=== PATIENT | female | born 1970 | race Hispanic/Latino ===

== ENCOUNTER 2016-05-29 13:52 | Emergency (ER) | payer OTHER ==
[~2016-05-29] VITALS: Ht 162.6 cm; Wt 68.0 kg
[~2016-05-29 13:52] MED LIST: KEFLEX500 MG PO; MEDROL DOSEPAK1 PAC PO; TRIAMCINOL0.1 %/453 TOP
[2016-05-29 13:58] VITALS: BP 136/90
[2016-05-29] MEDS ORDERED: TRAMADOL HCL50 M1 PO (14:05)
[2016-05-29] MEDS ORDERED: LIDOCAINE HCL V15 ML PO (14:05)
--- NOTE | 2016-05-29 14:06 | ED THROAT/DENTAL COMPLAINT ---
History of Present Illness General Chief Complaint: Sore Throat, Dental Pain Stated Complaint: TOOTH PAIN Source: patient Exam Limitations: no limitations Vital Signs & Intake/Output Vital Signs & Intake/Output Vital Signs Date Time Temp Pulse Resp B/P Pulse O2 O2 Flow FiO2 Ox Delivery Rate 05/29 1358 98.5 78 16 136/90 98 Room Air Room Air Allergies Coded Allergies: peanut (Intermediate, HIVES, HEADACHE 05/29/16) Reconcile Medications Lidocaine HCl (Lidocaine HCl Viscous) 2 % SOLUTION 15 ML PO 4 TIMES/DAY PRN dental pain swish and spit Tramadol HCl 50 MG TABLET 1 TAB PO BIDP PRN pain Triamcinolone Acetonide (Triamcinolone 0.1% Cream 453 Gm) 0.1 %/453 GM CRM 1 SARAH TOP BID SKIN RASH apply to affected area(s) Triage Note: pt to triage for right tooth pain for 1 week Triage Nurses Notes Reviewed? yes Onset: Gradual Duration: week(s): (1) Timing: no prior history Injury Environment: home Severity: moderate Severity Numbers: 8 Modifying Factors: Worsens With: other (palpation). : No Patient currently breastfeeds: No HPI: Patient is a 45-year-old female presenting to the emergency department with chief complaint of right lower dental pain has been going on for the past week. Denies any fevers chills nausea vomiting. Denies any edema to the area. She reports it's been cracked for "a while" but just got worse over the past week. Has been taking [id number] Tylenol without relief. Denies any recent trauma. She is scheduled to have the tooth removed but they won't do it until after her colostomy surgery in 2 weeks. (AMRITA DOLAN) Past History Travel History Traveled to [place] past 21 day No Medical History Any Pertinent Medical History? see below for history Neurological: NONE EENT: NONE Cardiovascular: NONE Respiratory: NONE Gastrointestinal: ulcerative colitis Musculoskeletal: PINCHED NERVE IN NECK Surgical History Surgical History: non-contributory Psychosocial History What is your primary language [place] Tobacco Use: Never used ETOH Use: denies use Illicit Drug Use: denies illicit drug use Family History Hx Contributory? No (AMRITA DOLAN) Review of Systems Review of Systems Constitutional: Reports: no symptoms. Comments Review of systems: See HPI, All other systems negative. Constitutional, no chills fever or weight loss HEENT: No visual changes no sore throat no congestion Cardiovascular: No chest pain ,palpitation , orthopnea or ankle swelling Skin, no jaundice no rashes Respiratory: No dyspnea cough sputum or hemoptysis GI: No nausea no vomiting Muscle skeletal: no back pain, no neck pain, Neurologic: No numbness Immunology: No splenectomy or history of AIDS (AMRITA DOLAN) Physical Exam Physical Exam General Appearance: well developed/nourished, no apparent distress, alert, awake , comfortable Mouth/Throat: poor dentition Comments: Well-developed well-nourished person in no acute distress HEENT: Pupils equally round and reactive to light and accommodation. Nose is atraumatic. External auditory canal and Tympanic membranes clear. Pharynx normal. No swelling or edema. Poor dentition. Cracked posterior molar on the right lower jawline. No surrounding erythema or edema. No abscess. Neck: Normal inspection Back: Nontender Cardiovascular: Regular rate and rhythms no murmurs rubs or gallops, normal JVP Respiratory: No respiratory distress. Extremity: No edema Neuro: Alert oriented x3 Skin: No appreciable rash on exposed skin, skin is warm and dry. Psych: Mood and affect is normal, memory and judgment is normal. Core Measures ACS in differential dx? No Severe Sepsis Present: No Septic Shock Present: No (AMRITA DOLAN) Progress Differential Diagnosis: tooth fracture, dental Gina, dental abscess, gingivitis Plan of Care: Patient will be treated symptomatically for pain. No signs of dental infection. She'll follow up with her dentist. Patient nontoxic. (AMRITA DOLAN) Departure Departure Time of Disposition: 1403 Disposition: HOME OR SELF CARE Condition: Stable Clinical Impression Primary Impression: Pain, dental Referrals: UNKNOWN (PCP/Family) Additional Instructions: Follow-up with your primary care physician and your dentist call to make an appointment. Take tramadol as prescribed for pain. Use lidocaine mouthwash as directed to help with pain. Return for worsening symptoms or concerns. Departure Forms: Customer Survey General Discharge Information Prescriptions: Current Visit Scripts Lidocaine HCl (Lidocaine HCl Viscous) 15 ML PO 4 TIMES/DAY PRN dental pain #100 ML swish and spit Tramadol HCl 1 TAB PO BIDP PRN pain #10 TAB (AMRITA DOLAN) PA/INVENTORY AUDITOR Co-Sign Statement Statement: ED Attending supervision documentation- x I saw and evaluated the patient. I have also reviewed all the pertinent lab results and diagnostic results. I agree with the findings and the plan of care as documented in the PA's/INVENTORY AUDITOR's documentation. [] I have reviewed the ED Record and agree with the PA's/INVENTORY AUDITOR's documentation. [] Additions or exceptions (if any) to the PAs/INVENTORY AUDITOR's note and plan are summarized below: [] (VERONICA JEAN,EVIN)
== END 2016-05-29 14:15 ==
LOC: ERH 13:52
DX: K08.89 Other specified disorders of teeth and supporting structures (principal)

== ENCOUNTER 2016-06-05 13:17 | Emergency (ER) | payer OTHER ==
[~2016-06-05] VITALS: Ht 162.6 cm; Wt 68.0 kg
[~2016-06-05 13:17] MED LIST changes: +LIDOCAINE HCL V15 ML PO; +TRAMADOL HCL50 M1 PO
--- NOTE | 2016-06-05 13:27 | ED HEADACHE COMPLAINT ---
History of Present Illness General Chief Complaint: Headache Stated Complaint: MIGRANE Source: patient Exam Limitations: no limitations Vital Signs & Intake/Output Vital Signs & Intake/Output Vital Signs Date Time Temp Pulse Resp B/P Pulse O2 O2 Flow FiO2 Ox Delivery Rate 06/05 1455 98.3 60 18 120/69 100 Room Air 06/05 1320 96.6 109 20 131/90 95 Room Air Allergies Coded Allergies: peanut (Intermediate, HIVES, HEADACHE 06/05/16) Reconcile Medications Butalb/Acetaminophen/Caffeine (Fioricet 50-300-40 MG Capsule) 50 MG-300 MG-40 MG CAPSULE 1-2 TAB PO Q6H PRN HEADACHE Lidocaine HCl (Lidocaine HCl Viscous) 2 % SOLUTION 15 ML PO 4 TIMES/DAY PRN dental pain swish and spit Promethazine HCl 25 MG TABLET 1 TAB PO Q6P PRN nausea/headache Tramadol HCl 50 MG TABLET 1 TAB PO BIDP PRN pain Triamcinolone Acetonide (Triamcinolone 0.1% Cream 453 Gm) 0.1 %/453 GM CRM 1 SARAH TOP BID SKIN RASH apply to affected area(s) Triage Note: TRIAGE: PT TO ER C/C MIGRAINE HEADACHE, HX OF SAME. ONSET YESTERDAY. TAKING EXCEDRIN WITH NO RELIEF. HAS HAD CORTIZONE SHOTS IN THE PAST WITH GOOD RELIEF. HAS ASSOCIATED S/S OF N/V AND DIZZINESS WHEN GETTING UP. -VISION CHANGES, -BLURRY VISION. +LIGHT/SOUND SENSITIVITY. Triage Nurses Notes Reviewed? yes : No Patient currently breastfeeds: No HPI: Patient is a 45-year-old female presents complaining of migraine headache. Left -sided frontal, temporal, parietal headache consistent with previous migraines 2 days. Associated nausea and vomiting, patient reports numerous episodes of vomiting. Patient tried taking Excedrin yesterday with no improvement. Pain is sharp, severe, worse with light. Patient denies fevers, chills, neck pain, rash , sick contacts (WINIFRED ROLLINS,MITCHEL) Past History Travel History Traveled to [place] past 21 day No Medical History Any Pertinent Medical History? 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 No (MITCHEL ARORA) Review of Systems Review of Systems Constitutional: Denies: chills, fever. Eyes: Reports: photophobia. Denies: blurred vision. Ears, Nose, Throat, Mouth: Reports: no symptoms. Respiratory: Denies: cough, short of breath. Cardiovascular: Denies: chest pain. Gastrointestinal/Abdominal: Reports: nausea, vomiting. Denies: abdominal pain. Genitourinary: Reports: no symptoms. Musculoskeletal: Reports: no symptoms. Skin: Reports: no symptoms. Neurological/Psychological: Reports: see HPI. Hematologic/Endocrine: Reports: no symptoms. Endocrine: Reports: no symptoms. Immunologic/Allergic: Reports: no symptoms. (MITCHEL ARORA) Physical Exam Physical Exam General Appearance: well developed/nourished, alert, awake Head: atraumatic, normal appearance, mild left-sided scalp tenderness, no palpable step-offs or deformities, no rash or lesions Eyes: Bilateral: normal appearance, PERRL, EOMI. Ears, Nose, Throat: normal pharynx, normal ENT inspection, hearing grossly normal Neck: normal inspection, supple, full range of motion, no midline tenderness Respiratory: normal breath sounds, chest non-tender, no respiratory distress, lungs clear Cardiovascular: regular rate/rhythm Gastrointestinal: soft, non-tender Back: normal inspection, normal range of motion Extremities: normal inspection, normal capillary refill, normal range of motion, no edema Psychiatric: awake, alert, oriented x 3 Cranial Nerves: normal hearing, normal speech, PERRL Coordination/Gait: normal gait Motor/Sensory: no motor/sensory deficits Skin: intact, normal color, warm/dry Core Measures Severe Sepsis Present: No Septic Shock Present: No (MITCHEL ARORA) Progress Differential Diagnosis: carotid dissection, cluster KOENIG, IC mass/tumor, intracranial Hem., meningitis, migraine KOENIG, musculoskeletal pain, subarach. Hem. , tension KOENIG, temporal arteritis, viral cephalgia Plan of Care: Current Medications Sig/Tabby Start time Last Medication Dose Stop Time Status Admin Dexamethasone 8 MG ONCE ONE 06/05 1345 UNVr (Decadron) 06/05 1346 Ketorolac 30 MG ONCE ONE 06/05 134 UNVr Tromethamine 06/05 134 (Toradol) Metoclopramide HCl 10 MG ONCE ONE 06/05 1344 UNVr (Reglan) 06/05 134 Sodium Chloride 1,000 ML BOLUS ONE 06/05 1344 UNVr (Normal Saline 0.9%) 06/05 1444 1420: Patient reports improvement of nausea and headache. Currently having left nasal congestion. No acute neurologic abnormalities. 1455: Symptoms resolve, patient nontoxic appearing, no meningeal signs, pain consistent with previous migraines. Appears stable for discharge. (MITCHEL ARORA) Departure Departure Time of Disposition: 1454 Disposition: HOME OR SELF CARE Condition: Stable Clinical Impression Primary Impression: Migraine headache Qualifiers: Migraine type: unspecified Status migrainosus presence: with status migrainosus Intractability: not intractable Qualified Code: G43.901 - Migraine, unspecified, not intractable, with status migrainosus Referrals: JAUN JEAN,MOMO WOODWARD (PCP/Family) Additional Instructions: Follow up with your primary doctor or with Dr. Pierce(primary doctor) for further evaluation. You should discuss possible prophylactic medications to help prevent migraines. Return to the ER if worsening of symptoms. Departure Forms: Customer Survey General Discharge Information Prescriptions: Current Visit Scripts Promethazine HCl 1 TAB PO Q6P PRN nausea/headache #15 TAB Butalb/Acetaminophen/Caffeine (Fioricet 50-300-40 MG Capsule) 1-2 TAB PO Q6H PRN HEADACHE #15 TAB (MITCHEL ARORA) PA/EXPLOSIVE TECHNICIAN Co-Sign Statement Statement: ED Attending supervision documentation- [] I saw and evaluated the patient. I have also reviewed all the pertinent lab results and diagnostic results. I agree with the findings and the plan of care as documented in the PA's/EXPLOSIVE TECHNICIAN's documentation. [X] I have reviewed the ED Record and agree with the PA's/EXPLOSIVE TECHNICIAN's documentation. [] Additions or exceptions (if any) to the PAs/EXPLOSIVE TECHNICIAN's note and plan are summarized below: [] (ROSA JEAN,JASPER)
[2016-06-05] MEDS ORDERED: PROMETHAZINE HC25 M3 PO (14:50)
[2016-06-05] MEDS ORDERED: FIORICET 50-301 EACH PO (14:50)
[2016-06-05 14:55] VITALS: BP 120/69
== END 2016-06-05 15:03 ==
LOC: ERH 13:17
DX: G43.909 Migraine, unspecified, not intractable, without status migrainosus (principal); R11.2 Nausea with vomiting, unspecified
CPT/HCPCS: 96374; 96375; J1100; J1885; J2765

== ENCOUNTER 2016-11-06 20:17 | Emergency (ER) | payer OTHER ==
[~2016-11-06] VITALS: Ht 162.6 cm; Wt 72.6 kg
[~2016-11-06 20:17] MED LIST changes: +FIORICET 50-301 EACH PO; +PROMETHAZINE HC25 M3 PO
[2016-11-06 20:46] VITALS: BP 111/76
[2016-11-06] MEDS ORDERED: PERCOCET 5-3251 EACH PO (21:57)
--- NOTE | 2016-11-06 21:58 | ED THROAT/DENTAL COMPLAINT ---
History of Present Illness General Chief Complaint: Sore Throat, Dental Pain Stated Complaint: TOOTH ACHE Source: patient Exam Limitations: no limitations Vital Signs & Intake/Output Vital Signs & Intake/Output Vital Signs Date Time Temp Pulse Resp B/P B/P Pulse O2 O2 Flow FiO2 Mean Ox Delivery Rate 11/066 98.8 76 16 111/76 99 Room Air ED Intake and Output 11/07 0000 11/06 1200 Intake Total Output Total Balance Patient 160 lb Weight Weight Reported by Patient Measurement Method Allergies Coded Allergies: peanut (Intermediate, HIVES, HEADACHE 06/05/16) Reconcile Medications Butalb/Acetaminophen/Caffeine (Fioricet 50-300-40 MG Capsule) 50 MG-300 MG-40 MG CAPSULE 1-2 TAB PO Q6H PRN HEADACHE Lidocaine HCl (Lidocaine HCl Viscous) 2 % SOLUTION 15 ML PO 4 TIMES/DAY PRN dental pain swish and spit Oxycodone HCl/Acetaminophen (Percocet 5-325 MG Tablet) 5 MG-325 MG TABLET 1-2 TAB PO Q6P PRN PAIN Promethazine HCl 25 MG TABLET 1 TAB PO Q6P PRN nausea/headache Tramadol HCl 50 MG TABLET 1 TAB PO BIDP PRN pain Triamcinolone Acetonide (Triamcinolone 0.1% Cream 453 Gm) 0.1 %/453 GM CRM 1 SARAH TOP BID SKIN RASH apply to affected area(s) Triage Note: TRIAGE: LEFT UPPER MAXILLA AREA PAIN/TOOTH ACHE, STATES SHE TOOK 600MG ADVIL AT 5PM WITHOUT IMPROVEMENT. STATES SHE HASN'T BEEN TO DENTIST YET DUE TO CONCERNS FOR NEED FOR GI SURGERY. AFEBRILE IN TRIAGE. DECLINES TYLENOL OFFERED BECAUSE "IT DOESN'T WORK". Triage Nurses Notes Reviewed? yes HPI: Patient presents with a severe 10 out of 10 aching throbbing pain to her left upper molar area. The pain radiates into her cheek. The pain increases when she touches the tooth with anything including her tongue. There are no fevers or chills. Patient has not seen her dentist yet for it. Patient has tried to take Tylenol and Motrin for the pain without any relief. The pain is 10 OUT OF 10. Past History Travel History Traveled to [place] past 21 day No Medical History Any Pertinent Medical History? 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 No Review of Systems Review of Systems Constitutional: Reports: no symptoms. EENTM: Reports: see HPI, tooth pain. Respiratory: Reports: no symptoms. Cardiovascular: Reports: no symptoms. Musculoskeletal: Reports: no symptoms. Neurological/Psychological: Reports: no symptoms. Physical Exam Physical Exam General Appearance: well developed/nourished, alert, awake, mild distress Head: atraumatic Eyes: Bilateral: PERRL, EOMI. Mouth/Throat: dental tenderness, NO ABSCESS, NO EDEMA Neck: normal inspection, supple Cardiovascular/Respiratory: normal breath sounds, normal peripheral pulses, regular rate/rhythm, no respiratory distress Neurologic/Psych: no motor/sensory deficits, awake, alert, oriented x 3, normal gait, normal mood/affect Core Measures ACS in differential dx? No Severe Sepsis Present: No Septic Shock Present: No Progress Differential Diagnosis: carious tooth Plan of Care: PAIN CONTROL AND FOLLOW UP Departure Departure Disposition: HOME OR SELF CARE Condition: Stable Clinical Impression Primary Impression: Toothache Referrals: UNKNOWN (PCP/Family) Additional Instructions: FOLLOW UP WITH YOUR DENTIST RETURN FOR ANY CONCERNS Departure Forms: Customer Survey General Discharge Information Prescriptions: Current Visit Scripts Oxycodone HCl/Acetaminophen (Percocet 5-325 MG Tablet) 1-2 TAB PO Q6P PRN PAIN #20 TAB
== END 2016-11-06 22:08 ==
LOC: ERH 20:17
DX: K08.89 Other specified disorders of teeth and supporting structures (principal)

== ENCOUNTER 2017-09-30 18:00 | Emergency (ER) | payer OTHER ==
[~2017-09-30] VITALS: Ht 162.6 cm; Wt 68.0 kg
[~2017-09-30 18:00] MED LIST changes: +ESGIC 50-325-41 EACH PO; +EXCEDRIN EXTRA1 EACH PO; +PERCOCET 5-3251 EACH PO
--- NOTE | 2017-09-30 20:04 | ED HEADACHE COMPLAINT ---
History of Present Illness General Chief Complaint: Headache Stated Complaint: HEADACHE Source: patient, old records Exam Limitations: no limitations Vital Signs & Intake/Output Vital Signs & Intake/Output Vital Signs Date Time Temp Pulse Resp B/P B/P Pulse O2 O2 Flow FiO2 Mean Ox Delivery Rate 09/30 2040 97.5 85 18 115/72 97 Room Air Room Air 09/30 1803 97.3 83 16 112/78 98 Room Air Allergies Coded Allergies: peanut (Intermediate, HIVES, HEADACHE 06/05/16) Reconcile Medications Aspirin/Acetaminophen/Caffeine (Excedrin Extra Strength Caplet) 250 MG-250 MG-65 MG TABLET 2 TAB PO PRN HEADACHES (Reported) Butalb/Acetaminophen/Caffeine (Esgic 50-325-40 MG Tablet) 50 MG-325 MG-40 MG TABLET 1 TAB PO Q6P PRN MIGRAINE Butalb/Acetaminophen/Caffeine (Esgic 50-325-40 MG Tablet) 50 MG-325 MG-40 MG TABLET 1 TAB PO Q6P PRN MIGRAINE Triage Note: PT STATES "I HAVE A CLUSTER MIGRAINE AGAIN". +NAUSEA, +PHOTOSENSTIVITY. PT TOOK EXCEDRIN W/O RELIEF. PAIN STARTED TODAY. Triage Nurses Notes Reviewed? yes HPI: Patient presents with a throbbing sensation above her left eye. Positive photophobia. The pain is 8 out of 10. There is no radiation. There is no nausea or vomiting. There are no fevers or chills. Similar symptoms in the past when she's had migraines. Patient has been seen in the emergency department prior for migraines and she states that the Toradol that she gets helps her headache. Patient states that she ran out of her FIRWediviteET. Past History Travel History Traveled to [place] past 21 day No Medical History Any Pertinent Medical History? 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 No Review of Systems Review of Systems Constitutional: Reports: no symptoms. Eyes: Reports: see HPI, photophobia. Respiratory: Reports: no symptoms. Cardiovascular: Reports: no symptoms. Gastrointestinal/Abdominal: Reports: no symptoms. Neurological/Psychological: Reports: see HPI, headache. Immunologic/Allergic: Reports: no symptoms. Physical Exam Physical Exam General Appearance: well developed/nourished, alert, awake, anxious, mild distress Head: atraumatic, normal appearance Eyes: Bilateral: PERRL, EOMI. Neck: normal inspection, supple, full range of motion Respiratory: normal breath sounds, chest non-tender, no respiratory distress, lungs clear Cardiovascular: regular rate/rhythm, normal peripheral pulses Psychiatric: awake, alert, oriented x 3 Cranial Nerves: normal hearing, normal speech, PERRL Coordination/Gait: normal gait Core Measures Sepsis Present: No Sepsis Focused Exam Completed? No Progress Differential Diagnosis: migraine KOENIG Plan of Care: Current Medications Sig/Tabby Start time Last Medication Dose Stop Time Status Admin Ketorolac 60 MG ONCE ONE 09/30 2014 AC Tromethamine 10/01 2015 (Toradol) Departure Departure Disposition: HOME OR SELF CARE Condition: Stable Clinical Impression Primary Impression: Migraine Referrals: Unknown (PCP/Family) Additional Instructions: RETURN IF SYMPTOMS WORSEN OR FOR ANY CONCERNS Departure Forms: Customer Survey General Discharge Information Prescriptions: Current Visit Scripts Butalb/Acetaminophen/Caffeine (Esgic 50-325-40 MG Tablet) 1 TAB PO Q6P PRN MIGRAINE #20 TAB
[2017-09-30] MEDS ORDERED: ESGIC 50-325-41 EACH PO (20:06)
[2017-09-30 20:41] VITALS: BP 115/72
== END 2017-09-30 20:42 ==
LOC: ERH 18:00
DX: G43.909 Migraine, unspecified, not intractable, without status migrainosus (principal)
CPT/HCPCS: 96372; J1885

== ENCOUNTER 2017-12-11 10:52 | Emergency (ER) | payer OTHER ==
[~2017-12-11] VITALS: Ht 162.6 cm; Wt 68.0 kg
[2017-12-11 10:54] VITALS: BP 111/71
--- NOTE | 2017-12-11 11:07 | ED HEADACHE COMPLAINT ---
History of Present Illness General Chief Complaint: Headache Stated Complaint: MIGRANE Source: patient Exam Limitations: no limitations Vital Signs & Intake/Output Vital Signs & Intake/Output Vital Signs Date Time Temp Pulse Resp B/P B/P Pulse O2 O2 Flow FiO2 Mean Ox Delivery Rate 12/11 1054 97.5 75 20 111/71 98 Room Air Allergies Coded Allergies: peanut (Intermediate, HIVES, HEADACHE 06/05/16) Reconcile Medications Aspirin/Acetaminophen/Caffeine (Excedrin Extra Strength Caplet) 250 MG-250 MG-65 MG TABLET 2 TAB PO PRN HEADACHES (Reported) Butalb/Acetaminophen/Caffeine (Esgic 50-325-40 MG Tablet) 50 MG-325 MG-40 MG TABLET 1 TAB PO Q6P PRN MIGRAINE Butalb/Acetaminophen/Caffeine (Esgic 50-325-40 MG Tablet) 50 MG-325 MG-40 MG TABLET 1 TAB PO Q6P PRN MIGRAINE Butalb/Acetaminophen/Caffeine (Zebutal 50-325-40 MG Capsule) 50 MG-325 MG-40 MG CAPSULE 1 TAB PO TID PRN MIGRAINE Methylprednisolone. (Medrol) 4 MG TAB.DS.PK 1 DP PO AD MIGRAINE 6 on day 1 then reduce by one tablet daily until gone Ondansetron HCl (Zofran) 4 MG TABLET 1 TAB PO Q6-8P PRN NAUSEA Triage Note: PT TO ED C/O MIGRAINE SINCE YESTERDAY. H/O SAME. TRIED EXCEDRIN WITH NO RELIEF. C/O N/V AND LIGHT SENSITVITY. Triage Nurses Notes Reviewed? yes Onset: Gradual Duration: constant Timing: recent history Quality/Severity: moderate, pressure Severity Numbers: 6 HPI: Patient is a 47-year-old with a past medical history migraines and ulcerative colitis who presented emergently with a 2 day history of generalized global migraine head pressure, patient states that gradually onset denies any acute onset or thunderclap headache denies any worst headache of life patient has associated symptoms of blurred vision photophobia and nausea without emesis. Patient ran out of her Fioricet which always improve her symptoms. Denies any fever chills neck pain facial droop and is otherwise without complaints. (Regis ROLLINS,Channing) Past History Travel History Traveled to [place] past 21 day No Medical History Any Pertinent Medical History? 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 No (Channing Corral) Review of Systems Review of Systems Constitutional: Reports: no symptoms. Eyes: Reports: see HPI, blurred vision. Ears, Nose, Throat, Mouth: Reports: no symptoms. Respiratory: Reports: no symptoms. Cardiovascular: Reports: no symptoms. Gastrointestinal/Abdominal: Reports: see HPI. Genitourinary: Reports: no symptoms. Musculoskeletal: Reports: no symptoms. Skin: Reports: no symptoms. Neurological/Psychological: Reports: see HPI, headache. Hematologic/Endocrine: Reports: no symptoms. Endocrine: Reports: no symptoms. Immunologic/Allergic: Reports: no symptoms. All Other Systems: Reviewed and Negative (Channing Corral) Physical Exam Physical Exam General Appearance: no apparent distress, alert, comfortable Head: atraumatic Eyes: Bilateral: normal appearance, PERRL, EOMI. Ears, Nose, Throat: normal pharynx, normal ENT inspection, hearing grossly normal Neck: normal inspection, supple Respiratory: normal breath sounds, chest non-tender, no respiratory distress Cardiovascular: regular rate/rhythm Psychiatric: awake, alert Cranial Nerves: normal hearing, normal speech, PERRL Coordination/Gait: normal finger to nose Skin: intact, normal color, warm/dry Comments: CN II-XII INTACT Core Measures Sepsis Present: No Sepsis Focused Exam Completed? No (Channing Corral) Progress Differential Diagnosis: carotid dissection, cav sinus thromb, cluster KOENGI, encephalitis, IC mass/tumor, intracranial Hem., meningitis, migraine KOENIG, musculoskeletal pain, sinusitis, SSS thrombosis, subarach. Hem., tension KOENIG, temporal arteritis, TMJ syndrome, viral cephalgia Plan of Care: No suspicion of cauda equina syndrome no concerns of meningitis patient is afebrile patient was able tolerate by mouth Patient requested medications and to be safely discharged Upon discharge patient looks well no apparent distress has unremarkable physical exam cranial nerves intact patient will be treated for concerns of migraine (Channing Corral) Departure Departure Disposition: HOME OR SELF CARE Condition: Stable Clinical Impression Primary Impression: Migraine Referrals: Unknown (PCP/Family) Additional Instructions: DISCUSSED BEGIN THE PRESCRIPTION OF ZEBUTAL FOR MIGRAINE, MEDROL DOSEPAK FOR INFLAMMATION AND ZOFRAN FOR NAUSEA PRESCRIPTIONS WAITING AT [facility] IF SYMPTOMS WORSEN, RETURN TO THE ER ESTABLISH DR [facility] THIS WEEK FOR FOLLOW UP Departure Forms: Customer Survey General Discharge Information Prescriptions: Current Visit Scripts Butalb/Acetaminophen/Caffeine (Zebutal 50-325-40 MG Capsule) 1 TAB PO TID PRN MIGRAINE #20 TAB Ondansetron HCl (Zofran) 1 TAB PO Q6-8P PRN NAUSEA #10 TAB Methylprednisolone. (Medrol) 1 DP PO AD #1 DP 6 on day 1 then reduce by one tablet daily until gone (Channing Corral) PA/MARINE BIOLOGIST Co-Sign Statement Statement: ED Attending supervision documentation- [] I saw and evaluated the patient. I have also reviewed all the pertinent lab results and diagnostic results. I agree with the findings and the plan of care as documented in the PA's/MARINE BIOLOGIST's documentation. [x] I have reviewed the ED Record and agree with the PA's/MARINE BIOLOGIST's documentation. [] Additions or exceptions (if any) to the PAs/MARINE BIOLOGIST's note and plan are summarized below: [] (Regulo Chaney DO)
[2017-12-11] MEDS ORDERED: ZOFRAN4 M2 PO (11:14)
[2017-12-11] MEDS ORDERED: ZEBUTAL 50-3251 EACH PO (11:14)
[2017-12-11] MEDS ORDERED: MEDROL4 M2 PO (11:14)
== END 2017-12-11 11:28 ==
LOC: ERH 10:52
DX: G43.909 Migraine, unspecified, not intractable, without status migrainosus (principal)